=== PATIENT | male | born 1980 | race Caucasian/White ===

== ENCOUNTER 2019-05-13 20:34 | Emergency (ER) | payer MEDICAID, SELFPAY ==
[~2019-05-13] VITALS: Ht 177.8 cm; Wt 79.0 kg
[2019-05-13] MEDS ORDERED: GABA300C10 PO (21:21)
[2019-05-13] MEDS ORDERED: RANI75TA12 PO (21:21)
--- NOTE | 2019-05-13 21:26 | NUR ---
States recently admitted to [facility] for impetigox1 month ago. C/o Bilat upper extremity rashx3 days "just like before and they told me to come back if i got it again." PER BERTA NOTE
[2019-05-13 22:06] LABS: ANION GAP 8 mmol/L (5-15); CHLORIDE 104 mmol/L (98-107); CREATININE 0.87 mg/dL (0.7-1.3)
[2019-05-13 22:09] LABS: BASOPHILS # (AUTO) 0.02 x10^3/uL (0-0.1); BASOPHILS % (AUTO) 0 % (0-1); EOSINOPHILS # (AUTO) 0.17 x10^3/uL (0-0.4); EOSINOPHILS % (AUTO) 2 % (1-7); LYMPHOCYTES # (AUTO) 1.15 x10^3/uL (1-3.4); LYMPHOCYTES % (AUTO) 15 % (22-44); MD NO; MEAN CORPUSCULAR HEMOGLOBIN 33.9 pg (27.5-34.5); MEAN CORPUSCULAR HGB CONC 32.6 g/dL (33.2-36.2); MEAN CORPUSCULAR VOLUME 104.1 fL (81-97); MONOCYTES % (AUTO) 8 % (2-9); NEUTROPHILS # (AUTO) 5.71 x10^3/uL (1.8-6.8); NEUTROPHILS % (AUTO) 75 % (42-75); PLATELET COUNT 184 x10^3/uL (130-400); RED BLOOD COUNT 4.28 x10^6/uL (4.38-5.82); RED CELL DISTRIBUTION WIDTH 14.1 % (9.4-14.8)
[2019-05-13] MEDS ORDERED: CLINDAMYCIN 300 MG CAPSULE PO ONE (22:30)
[2019-05-13] MEDS ORDERED: CLINDAMYCIN 300 MG CAPSULE ONE (22:54)
--- NOTE | 2019-05-13 22:56 | NUR ---
MEDICATED PT STATED PT HAD TAKEN CLINDAMYCIN BEFORE NO REACTION NOTED VSS UPDATED STABLE
[2019-05-13 23:07] VITALS: BP 117/68
--- NOTE | 2019-05-13 23:07 | NUR ---
given dc instrucftion pt understood pt up ambualted to check out
== END 2019-05-13 23:09 | disposition home or self-care (01) ==
LOC: ED 23:00
DX: L03.113 Cellulitis of right upper limb (principal); K21.9 Gastro-esophageal reflux disease without esophagitis; F17.200 Nicotine dependence, unspecified, uncomplicated
CPT/HCPCS: 36415; 80048; 83605; 84145; 85025; 99283; J7512

== ENCOUNTER 2019-06-11 00:17 | Emergency (ER) | payer MEDICAID, OTHER ==
[~2019-06-11] VITALS: Ht 177.8 cm; Wt 63.7 kg
[2019-06-11 00:19] VITALS: BP 126/86
== END 2019-06-11 01:21 | disposition home or self-care (01) ==
LOC: ED 00:48
DX: L40.9 Psoriasis, unspecified (principal); K21.9 Gastro-esophageal reflux disease without esophagitis; F17.200 Nicotine dependence, unspecified, uncomplicated
CPT/HCPCS: 99283; J7512